=== PATIENT | female | born 1990 | race American Indian/Alaskan Native ===

== ENCOUNTER 2020-06-22 15:35 | Emergency (ER) | payer SELFPAY ==
[2020-06-22] MEDS ORDERED: SODIUM CHLORIDE 0.9% 1000 ML 1,000 ML IV ONE (15:46)
--- NOTE | 2020-06-22 15:48 | Event Note ---
ED Screening Note Date of service: 06/22/20 Time: 15:47 ED Screening Note: 29 y/o female comes in for sickle cell crisis. Her pain medication is not helping. This initial assessment/diagnostic orders/clinical plan/treatment(s) is/are subject to change based on patients health status, clinical progression and re- assessment by fellow clinical providers in the ED. Further treatment and workup at subsequent clinical providers discretion. Patient/guardian urged not to elope from the ED as their condition may be serious if not clinically assessed and managed. Initial orders include:
[2020-06-22 17:00] VITALS: BP 128/89
[2020-06-22 17:00] LABS: Basophils # (Auto) 0.1 K/mm3 (0.0-0.1); Basophils % (Auto) 1.4 % (0.0-1.8); Eosinophils % (Auto) 0.8 % (0.0-4.3); Hemoglobin 11.6 gm/dl (10.1-14.3); Lymphocytes # (Auto) 1.9 K/mm3 (1.2-5.4); Lymphocytes % (Auto) 31.8 % (13.4-35.0); Mean Corpuscular HGB Conc 34 % (30-34); Mean Corpuscular Volume 105 fl (79-97); Monocytes # (Auto) 0.5 K/mm3 (0.0-0.8); Monocytes % (Auto) 8.4 % (0.0-7.3); Platelet Count 268 K/mm3 (140-440); Red Blood Count 3.23 M/mm3 (3.65-5.03); Red Cell Distribution Width 13.5 % (13.2-15.2)
[2020-06-22 17:12] LABS: Alanine Aminotransferase 24 units/L (7-56); Albumin 4.3 g/dL (3.9-5); Blood Urea Nitrogen 10 mg/dL (7-17); Calcium 9.1 mg/dL (8.4-10.2); Hemolysis Index 39
[2020-06-22 17:13] LABS: BUN/Creatinine Ratio 14
[2020-06-22] MEDS ORDERED: diphenhydrAMINE 50 MG/ML VIAL IV ONE (17:18)
[2020-06-22] MEDS ORDERED: HYDROmorphone 1 MG/1 ML INJ IV ONE (17:18)
[2020-06-22] MEDS ORDERED: ONDANSETRON 4 MG/2 ML INJ IV ONE (17:18)
[2020-06-22] MEDS ORDERED: D5W/0.2% NACL 1,000 ML IV SCH (18:00)
--- NOTE | 2020-06-22 18:03 | Emergency Department Report ---
ED General Adult HPI - General Chief complaint: Sickle Cell Crisis Stated complaint: SICKLE CELL/DEHYDRATION Time Seen by Provider: 06/22/20 16:35 Source: patient Mode of arrival: Ambulatory Limitations: No Limitations - History of Present Illness Initial comments: 29-year-old female presents to the hospital complaining of having bilateral leg pain since this morning. Patient states she was partying and drinking heavily last night. Patient felt bad upon waking this morning and upon the advice of her alcoholic family member took an extra shot of alcohol as well as for morphine 30 mg for pain. She then drank 4 bottles of water because she thought she was dehydrated and has several episodes of vomiting. She is unsure if her pain is secondary to alcohol intake/dehydration or a sickle cell crisis. Patient denies fever, nausea, or vomiting. She apparently has leftover morphine that was prescribed by her physician in [place]. Although she states that she has sickle cell SC she does not have a accounting machine servicer currently but plans to see a accounting machine servicer in [place] within the next week or 2. Patient was here recently but apparently this was marked as a first visit to give patient provide us a different name and date of with her ED visits. Severity scale (0 -10): 7 - Related Data Home Medications Medication Instructions Recorded Confirmed Last Taken Folic Acid 600 mg PO DAILY 06/22/20 06/22/20 Unknown Gabapentin 600 PO QDAY MDD 600 06/22/20 Unknown Allergies Allergy/AdvReac Type Severity Reaction Status Date / Time amoxicillin Allergy Unknown Verified 06/22/20 17:20 ibuprofen Allergy Unknown Verified 06/22/20 17:20 ED Review of Systems ROS: Stated complaint: SICKLE CELL/DEHYDRATION Other details as noted in HPI Comment: All other systems reviewed and negative ED Past Medical Hx - Past Medical History Previous Medical History?: Yes Hx Sickle Cell Disease: Yes Additional medical history: Leg pain and hip pain, UTI - Surgical History Past Surgical History?: Yes Additional Surgical History: Port removal - Social History Smoking Status: Never Smoker Substance Use Type: Alcohol - Medications Home Medications: Home Medications Medication Instructions Recorded Confirmed Last Taken Type Folic Acid 600 mg PO DAILY 06/22/20 06/22/20 Unknown History Gabapentin 600 PO QDAY MDD 600 06/22/20 Unknown History ED Physical Exam - General Limitations: No Limitations - Other Other exam information: General: No acute distress Head: Atraumatic Eyes: normal appearance ENT: Moist mucous membranes Neck: Normal appearance, no midline tenderness Chest: Clear to auscultation bilaterally CV: Regular rate and rhythm Abdomen: Soft, normal bowel sounds, nontender, nondistended, no rebound or guarding Back: Normal inspection Extremity: Normal inspection, full range of motion Neuro: Alert O x 3, no facial asymmetry, speech clear, no gross motor sensory deficit Psych: Appropriate behavior Skin: No rash ED Course Vital Signs 06/22/20 06/22/20 06/22/20 15:40 15:42 16:59 Temperature 98.7 F 98.7 F 98.3 F Pulse Rate 103 H 103 H 96 H Respiratory 20 20 18 Rate Blood Pressure 156/103 Blood Pressure 156/103 128/89 [Right] O2 Sat by Pulse 98 98 99 Oximetry ED Medical Decision Making - Lab Data Result diagrams: 06/22/20 16:51 06/22/20 16:51 Lab Results 06/22/20 06/22/20 06/22/20 Range/Units 16:51 16:51 16:51 WBC 6.1 (4.5-11.0) K/mm3 RBC 3.23 L (3.65-5.03) M/mm3 Hgb 11.6 (10.1-14.3) gm/dl Hct 34.0 (30.3-42.9) % MCV 105 H (79-97) fl MCH 36 H (28-32) pg MCHC 34 (30-34) % RDW 13.5 (13.2-15.2) % Plt Count 268 (140-440) K/mm3 Lymph % (Auto) 31.8 (13.4-35.0) % Bailey % (Auto) 8.4 H (0.0-7.3) % Eos % (Auto) 0.8 (0.0-4.3) % Baso % (Auto) 1.4 (0.0-1.8) % Lymph # (Auto) 1.9 (1.2-5.4) K/mm3 Bailey # (Auto) 0.5 (0.0-0.8) K/mm3 Eos # (Auto) 0.0 (0.0-0.4) K/mm3 Baso # (Auto) 0.1 (0.0-0.1) K/mm3 Seg Neutrophils % 57.6 (40.0-70.0) % Seg Neutrophils # 3.5 (1.8-7.7) K/mm3 Percent Retic 1.13 (0.78-2.58) % Sodium 140 (137-145) mmol/L Potassium 4.0 (3.6-5.0) mmol/L Chloride 105.1 (98-107) mmol/L Carbon Dioxide 25 (22-30) mmol/L Anion Gap 14 mmol/L BUN 10 (7-17) mg/dL Creatinine 0.7 (0.6-1.2) mg/dL Estimated GFR > 60 ml/min BUN/Creatinine Ratio 14 % Glucose 92 (65-100) mg/dL Calcium 9.1 (8.4-10.2) mg/dL Total Bilirubin 0.20 (0.1-1.2) mg/dL AST 24 (5-40) units/L ALT 24 (7-56) units/L Alkaline Phosphatase 96 (35-129) units/L Total Protein 7.0 (6.3-8.2) g/dL Albumin 4.3 (3.9-5) g/dL Albumin/Globulin Ratio 1.6 % HCG, Qual Negative (Negative) - Medical Decision Making Patient apparently has provided us her security number that does not belong to her. She also has used different in names and birthdates here. Last time she was here she used in a Barb veronica date of 12/13/1991. Patient always presents without and ID. When confronted about giving us the wrong Social Security number she states that she does not know her Social Security number. She apparently does not have her ID, Bank card, or any other identification because she "loses things". After receiving Dilaudid 1 mg, normal saline, and monitoring patient insists that she does not feel well and wanting more pain medication. She now states that she might have a UTI and was offered the opportunity to provide a urine sample. However, patient was confronted about verifying her identity with an appropriate so security number, and date of or name she wanted to leave and have her IV taken out. She did not provide a urine sample pain medicine discharge Labs are normal and pt does not have any lab findings of sickle cell crises and does not have a accounting machine servicer to contact to verify this diagnosis. Critical Care Time: No Critical care attestation.: If time is entered above; I have spent that time in minutes in the direct care of this critically ill patient, excluding procedure time. ED Disposition Clinical Impression: Bilateral leg pain Disposition: DC-01 TO HOME OR SELFCARE Is pt being admited?: No Does the pt Need Aspirin: No Condition: Stable Instructions: Leg Cramps, Pain Without a Known Cause Additional Instructions: Follow-up with your doctor or doctor/clinic provided. Avoid heavy alcohol use and drink plenty of fluids. Return if symptoms worsen as indicated by your discharge instructions. Referrals: PRIMARY MD MASHA [Primary Care Provider] - 3-5 Days MONTSERRAT HAMM MD [Staff Physician] - 3-5 Days (Hematology) [facility] [Provider Group] - 3-5 Days Time of Disposition: 18:09
== END 2020-06-22 18:28 | disposition home or self-care (01) ==
LOC: ED 15:35
DX: M79.605 Pain in left leg (principal); M79.604 Pain in right leg; Z79.899 Other long term (current) drug therapy; Z88.8 Allergy status to other drugs, medicaments and biological substances
CPT/HCPCS: 36415; 80053; 84703; 85025; 85045; 96361; 96374; 96375; 99283; J1170; J1200; J2405; J7030